=== PATIENT | female | born 2000 | race African-American/Black ===

== ENCOUNTER 2019-06-28 12:28 | Emergency (ER) | payer BC, OTHER ==
[2019-06-28 14:37] LABS: #Lymphocytes 1.9 thou/uL (1.20-3.40); #Monocytes 0.5 thou/uL (0.11-0.59); #Neutrophils 3.6 thou/uL (1.40-6.50); %Basophils 0.4 % (0.0-1.0); %Eosinophils 0.8 % (0.0-10.0); %Lymphocytes 31.8 % (21.0-51.0); %Neutrophils 59.1 % (42.0-75.0); Hemoglobin 13.5 g/dL (12.0-16.0); Mean Corpuscular HGB CONC 33.9 g/dL (32.0-36.0); Mean Corpuscular Hemoglobin 31.3 pg (27.0-31.0); Mean Corpuscular Volume 92.3 fL (78.0-98.0); Mean Platelet Volume 7.3 fL (7.4-10.4); Platelet Count 278 thou/uL (130-400); RBC Distribution Width 11.5 % (11.5-14.5)
[2019-06-28 14:58] LABS: ALT (SGPT) 11 U/L (8-55); AST (SGOT) 16 U/L (5-34); Albumin 4.1 g/dL (3.5-5.0); Alkaline Phosphatase 50 U/L (40-110); Anion Gap 13 mmol/L (10-20); BUN (Urea Nitrogen) 9 mg/dL (7.0-18.7); Bilirubin, Total 0.5 mg/dL (0.2-1.2); Calc. Creatinine Clearance 0 mL/min (70-130); Calcium 9.3 mg/dL (7.8-10.44); Carbon Dioxide 23 mmol/L (22-29); Chloride 106 mmol/L (98-107); Estimated GFR-MDRD Greater than 90; Globulin 3.1 g/dL (2.4-3.5); Glucose 83 mg/dL (70-105); Lipase 57 U/L (8-78); Potassium 3.9 mmol/L (3.5-5.1); Protein, Total 7.2 g/dL (6.0-8.3); Sodium 138 mmol/L (136-145)
[2019-06-28 14:59] LABS: BHCG - Serum Negative (NEGATIVE); Pregs Control Background? CLEAR/WHITE (CLR/WHITE); Pregs Control Bar Appear? YES (CONTROL BAR)
== END 2019-06-28 15:50 | disposition home or self-care (01) ==
LOC: ERS 12:28
DX: R07.9 Chest pain, unspecified (principal); R10.811 Right upper quadrant abdominal tenderness
CPT/HCPCS: 36415; 80053; 83690; 84703; 85025; 93005

== ENCOUNTER 2021-01-31 14:58 | Emergency (ER) | payer OTHER ==
[2021-01-31] MEDS ORDERED: Dexamethasone 10 MG/ML VIAL ONE (16:08)
== END 2021-01-31 16:11 | disposition home or self-care (01) ==
LOC: ERS 14:58
DX: J02.0 Streptococcal pharyngitis (principal)
CPT/HCPCS: 99282; J1100

== ENCOUNTER 2022-09-22 14:05 | Emergency (ER) | payer OTHER, SELFPAY | END 2022-09-22 16:58 | disposition home or self-care (01) | LOC: ERS 14:05 | DX: H10.12 Acute atopic conjunctivitis, left eye (principal) | CPT/HCPCS: 99283 ==